=== PATIENT | female | born 1985 | race American Indian/Alaskan Native ===

== ENCOUNTER 2021-04-16 06:46 | Day surgery (SDC) | payer OTHER ==
[~2021-04-16] VITALS: Ht 165.1 cm; Wt 81.4 kg
[~2021-04-16 06:46] MED LIST: FISH OIL 1,0001 EAC2 NG; LITHIUM CARBON300 M1 PO; MELATONIN5 M2 PO; NICODERM CQ1 EAC1 TD; PRENATAL MULTI1 EAC5 PO; VITAMIN D-32000 UNIT PO; ZYPREXA5 MG PO
--- NOTE | 2021-04-16 10:28 | NUR ---
04/16/21 Gio8 Genevieve Souza 1021- PT ARRIVES TO PACU EASILY AROUSABLE TO VOICE. RESP EVEN AND UNLABORED. OXYGEN SAT HIGH 90'S TO 10O% ON 6L VIA MASK. PERIPAD HAS A VERY SMALL AMOUNT OF DRAINAGE ON IT.
--- NOTE | 2021-04-16 12:24 | NUR ---
AMB TO BR DID WELL. VOIDS 450 REDDISH URINE.
--- NOTE | 2021-04-16 13:23 | NUR ---
DRANK WATER JUICE AND HAD PUDDING WHILE HERE.
--- NOTE | 2021-04-22 17:56 | OR ---
[facility] [address] [place], [place] [address] Signed DATE OF OPERATION: 04/16/2021 SURGEON: Elias Darden MD PREOPERATIVE DIAGNOSIS: Blighted ovum. POSTOPERATIVE DIAGNOSIS: Blighted ovum, intraoperative hemorrhage. PROCEDURE: Suction D and C. ANESTHESIA: MAC. ESTIMATED BLOOD LOSS: 1200 mL. DRAINS: None. PACKS: None. INDICATIONS AND FINDINGS: The patient is a 35-year-old female 4, para 3-0-0-4, who presented to the office with a blighted ovum. Her dating was unknown as she had some irregular bleeding before finding out about the . Her uterus however was approximately 10-week size and was soft. Her cervix was closed. At the time of surgery, there was a very large amount of tissue within the uterus and she had a brisk hemorrhage until all the tissue was removed. DESCRIPTION OF PROCEDURE: The patient was prepped and draped in the dorsal lithotomy position. An open-sided speculum was placed. The anterior lip of the cervix was visualized and grasped with a single-tooth tenaculum. The endocervical canal was then dilated to a #10 dilator. The #10 curved suction curette was then introduced with removal of a large amount of tissue. Following the initial suction, small forceps were introduced and a large sac removed from the uterus. Following this, suction and sharp curettage were alternated until all Electronically Signed By: ELIAS DARDEN MD 04/22/21 1756 PATIENT NAME: LUIS CARLOS MOYA OPERATIVE REPORT DATE OF : 85 REPORT #: [id number] PHYSICIAN: ELIAS DARDEN MD PCP: SHANNON SERRATO MD REPORT IS CONFIDENTIAL AND NOT TO BE RELEASED WITHOUT AUTHORIZATION [facility] [address] [place] [place], [place] [address] Signed the tissue was removed and the uterus felt clean and contracted. During this time, she did have brisk bleeding. She did receive IV Pitocin as well as IM Methergine during this time. Most of the tissue appeared to be near the right fundus. The bleeding decreased as the tissue was removed. Angle sutures of 0 chromic were placed at 3 and 9 o'clock as well to aid in hemostasis. Following this, the bleeding was essentially stopped. Removal of the tenaculum did show some bleeding from the tenaculum site and a [id number] suture of 0 chromic was placed in this area as well with good hemostasis noted. She was observed for a while to be sure there was no evidence of any ongoing bleeding and the procedure was then terminated. She was taken to the recovery room in good condition. She was stable throughout the surgical procedure. All sponge and needle counts were correct. MD SHONA Torres/RADHA /[id number] cc: [facility] Copies: ~ Electronically Signed By: ELIAS DARDEN MD 04/22/21 1756 PATIENT NAME: JUAN MONTEIROLUIS CARLOS OPERATIVE REPORT DATE OF : 85 REPORT #: [id number] PHYSICIAN: ELIAS DARDEN MD PCP: SHANNON SERRATO MD REPORT IS CONFIDENTIAL AND NOT TO BE RELEASED WITHOUT AUTHORIZATION
--- NOTE | 2021-04-26 18:20 | PATH ---
[facility] [address] [facility] [place] [address] Signed THIS IS AN ADDENDUM REPORT SPECIMEN(S): A PRODUCTS OF CONCEPTION SPECIMEN SOURCE: A. PRODUCTS OF CONCEPTION CLINICAL HISTORY: Suction DC. Blighted ovum or "non- hydatidiform mole". FINAL PATHOLOGIC DIAGNOSIS: Products of conception, curettage: - Immature chorionic villi admixed with decidua and blood, consistent with products of conception. - See comment. COMMENT: The chorionic villi are immature with some demonstrating hydropic morphology and others small and fibrotic. No central cistern formation, trophoblast inclusions, or significant synctiotrophoblast hyperplasia/atypia is seen. Nucleated red blood cells are present in the villous vessels. The hydropic appearance of the villi are favored to be secondary to villous degeneration. As part of [facility]' Quality Improvement Program, this case was reviewed by another member of our pathology staff. NAL:cml:C2NR MICROSCOPIC EXAMINATION: Histologic sections of all submitted blocks are examined by light microscopy. These findings, together with the gross examination, support the pathologic diagnosis. GROSS DESCRIPTION: The specimen, labeled "VB, products of conception," is received in formalin and consists of membranous tissue with mucus and clot material, and bella, spongy fragments measuring 13.0 x 12.5 x 2.7 cm in aggregate. Among spongy tissue there is a 1.0 x 0.8 x 0.7 cm, rubbery, bella, sac-like nodule. Decision Support Analyst sections are submitted in cassettes (A1-A3). AT (under the direct supervision of a pathologist) The Gross Description was prepared using a voice recognition system. The report was reviewed for accuracy; however, sound-alike word errors, addition and/or PATIENT NAME: LUIS CARLOS MOYA PATHOLOGY DATE OF : [birth year] REPORT #: [id number] PHYSICIAN: ANASTASIIA PATHOLOGY PCP: SHANNON SERRATO MD REPORT IS CONFIDENTIAL AND NOT TO BE RELEASED WITHOUT AUTHORIZATION [facility] [address] [place], [place] [address] Signed deletions may occur. If there is any question about this report, please contact Client Services. PERFORMING LABORATORY: The technical component was performed by [facility], [address] [place] [id number] (Python Developer: Marsha Valdes MD; CLIA# [id number]). Professional [facility], [address] [address] (CLIA# [id number]). ADDITIONAL NOTES: Immunohistochemical and/or in situ hybridization studies were performed on this case with the appropriate positive controls that react as expected. This test was developed and its performance characteristics determined by [facility]. It has not been cleared or approved by the U.S. Food and Drug Administration. The FDA has determined that such clearance or approval is not necessary. This test is used for clinical purposes. It should not be regarded as investigational or for research. [facility] is certified under the Clinical Laboratory Improvement Amendments of 1988 (CLIA) as qualified to perform high complexity clinical laboratory testing. This assay has not been validated for specimens that have been decalcified. The technical component was performed by [facility],[address] [place] [id number](Python Developer: Jean-Claude Naranjo M.D.; CLIA#[id number]). Professional interpretation was performed by [facility], [address], [place] [address] (CLIA# [id number]). REASON FOR ADDENDUM: To add results of additional testing. ADDENDUM PATHOLOGIC DIAGNOSIS: A p57 immunohistochemical stain (with appropriately staining controls) is present within villous stromal cells, villous cytotrophoblasts, and extravillous trophoblasts, a staining pattern that argues against complete hydatidiform mole. The final diagnosis remains unchanged. NAL:[facility] Diagnostician: Shannon Dodson MD Pathologist PATIENT NAME: LUIS CARLOS MOYA PATHOLOGY DATE OF : 85 REPORT #: [id number] PHYSICIAN: ANASTASIIA WHITE PCP: SHANNON SERRATO MD REPORT IS CONFIDENTIAL AND NOT TO BE RELEASED WITHOUT AUTHORIZATION [facility] [address] [place], [place] [address] Signed Electronically Signed 04/26/2021 Copies: ~ PATIENT NAME: LUIS CARLOS MOYA PATHOLOGY DATE OF : 85 REPORT #: [id number] PHYSICIAN: ANASTASIIA PATHOLOGY PCP: SHANNON SERRATO MD REPORT IS CONFIDENTIAL AND NOT TO BE RELEASED WITHOUT AUTHORIZATION
== END 2021-04-16 13:05 | disposition home or self-care (01) ==
LOC: DS 06:46
PROVIDERS: ATTEND Obstetrics & Gynecology
PROC: 10D07Z6 Extraction of Products of Conception, Vacuum, Via Natural or Artificial Opening (ICD-10-PCS; principal; 2021-04-16 09:00)
DX: O02.0 Blighted ovum and nonhydatidiform mole (principal); F17.210 Nicotine dependence, cigarettes, uncomplicated; E66.9 Obesity, unspecified; Z68.29 Body mass index [BMI] 29.0-29.9, adult; Z88.5 Allergy status to narcotic agent
CPT/HCPCS: 00952; 88305; 88342; J1100; J1885; J2001; J2210; J2250; J2405; J2590; J2704; J2765; J7121